=== PATIENT | female | born 1960 | race Caucasian/White ===

== ENCOUNTER → 2016-10-28 | Outpatient (CLI) | payer BC ==
--- NOTE | 2016-10-28 12:53 | DIAGNOSTIC IMAGING REPORT ---
ABD/PELVIS NO IV OR ORAL CONT CT DOSE: 442.23 mGy.cm HISTORY: Pain R10.9 Acute right flank pain TECHNIQUE: Multiaxial CT images of the abdomen and pelvis were performed without contrast. A dose lowering technique was utilized adhering to the principles of ALARA. COMPARISON STUDY: None. FINDINGS: Lung bases are clear. Liver spleen and pancreas appear uniform. Prior cholecystectomy. 2 cm upper pole right renal cyst. No evidence for hydronephrosis. Slight fullness right renal collecting system. Bowel pattern is nonobstructive. Patient by history is status post appendectomy. Bladder is midline. There are no bowel obstructive changes. IMPRESSION: 1. 2 cm right renal cyst. 2. Slight fullness right renal pelvis. This is nonspecific although correlation for potential pyelonephritis could be entertained. 3. Otherwise negative study abdomen and pelvis post cholecystectomy and appendectomy. The above report was generated using voice recognition software. It may contain grammatical, syntax or spelling errors. Electronically signed by: Atilio Mae M.D. 10/28/2016 12:52 PM Dictated Date/Time: 10/28/2016 12:47 PM
== END | disposition home or self-care (01) ==
LOC: C.CTS 12:22
PROVIDERS: ATTEND Internal Medicine
DX: R10.9 Unspecified abdominal pain (principal); N28.1 Cyst of kidney, acquired; Z90.49 Acquired absence of other specified parts of digestive tract; Z90.89 Acquired absence of other organs

== ENCOUNTER → 2016-10-28 | Outpatient (CLI) | payer BC ==
[2016-10-28 12:53] LABS: URINE APPEARANCE CLEAR (CLEAR); URINE BILIRUBIN NEG (NEG); URINE COLOR YELLOW; URINE NITRITE NEG (NEG); URINE PH 5.5 (4.5-7.5); URINE SPECIFIC GRAVITY 1.021 (1.000-1.030); UROBILINOGEN NEG (NEG); ZZUR CULT IF INDIC CLEAN CATCH NO
[2016-10-28 12:54] LABS: MANUAL MICROSCOPIC REQUIRED? NO; REVIEW REQ? NO
[2016-10-28 17:53] LABS: BASO % 0.3 %; BASO ABS # 0.02 K/uL (0-0.2); BLOOD UREA NITROGEN 14 mg/dl (7-18); BUN/CREATININE RATIO 17.9 (10-20); CALCIUM 9.8 mg/dl (8.5-10.1); CARBON DIOXIDE 29 mmol/L (21-32); CHLORIDE 105 mmol/L (98-107); COMPLETE YES; CREATININE 0.76 mg/dl (0.60-1.20); EOS % 0.9 %; GLUCOSE 85 mg/dl (70-99); HEMATOCRIT 48.7 % (37-47); IG% 0.3 %; LYMPH % 32.1 %; LYMPH ABS # 2.37 K/uL (1.2-3.4); MEAN CELL VOLUME 88.4 fL (80-100); MEAN CORPUSCULAR HEMOGLOBIN 30.1 pg (25-34); MEAN CORPUSCULAR HGB CONC 34.1 g/dl (32-36); MEAN PLATELET VOLUME 11.6 fL (7.4-10.4); MONO % 6.6 %; NEUT % 59.8 %; PLATELET COUNT 394 K/uL (130-400); POTASSIUM 3.8 mmol/L (3.5-5.1); RED BLOOD COUNT 5.51 M/uL (4.2-5.4); SODIUM 140 mmol/L (136-145); WHITE BLOOD COUNT 7.38 K/uL (4.8-10.8)
== END | disposition home or self-care (01) ==
LOC: C.LABBFT 11:44
PROVIDERS: ATTEND Nurse Practitioner
DX: R39.9 Unspecified symptoms and signs involving the genitourinary system (principal); R10.9 Unspecified abdominal pain